=== PATIENT | female | born 2000 | race Two or more races ===

== ENCOUNTER 2025-05-04 11:12 | Emergency (ER) | payer MEDICAID, OTHER ==
[~2025-05-04] VITALS: Ht 154.9 cm; Wt 95.4 kg
[2025-05-04] MEDS ORDERED: TRIA0.02 TOP (11:51)
[2025-05-04] MEDS ORDERED: PRED20TA2 PO (11:51)
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
[2025-05-04] MEDS: methylPREDNISolone SOD SUCC 125 MG/2 ML VL IM ONE (11:58)
[2025-05-04 12:07] VITALS: BP 129/86; TEMP 98.8
[2025-05-04 12:16] VITALS: PULSE 81; RESP 17; O2SAT 98
== END 2025-05-04 12:23 | disposition home or self-care (01) ==
LOC: ER 11:12
DX: T63.481A Toxic effect of venom of other arthropod, accidental (unintentional), initial encounter (principal); Z79.899 Other long term (current) drug therapy
CPT/HCPCS: 96372; 99283; J2919